=== PATIENT | male | born 1990 | race Hispanic/Latino ===

== ENCOUNTER 2022-10-31 18:31 | Emergency (ER) | payer OTHER, SELFPAY ==
--- OUTSIDE RECORDS SUMMARY | 2022-10-31 18:35 | XMS REPORT | Continuity of Care Document ---
:1990 Author Organization [facility] t Address [address] [place] [address] Care Team Providers Name Role Phone Asked, No Pcp Primary Care Physician Unavailable HALLE PARRA Attending Clinician Unavailable Problems This patient has no known problems. Allergies, Adverse Reactions, Alerts Allergy Allergy Status Severity Reaction(s) Onset Inactive Treating Comm ents Source Name Type Date Date Clinician No Known No Known Active Memori a Medicati Medicati l on on Zelalem Jacob Allerghonorio s s Social History Social Habit Start Date Stop Date Quantity Comments Source Gender identity [facility] Sexual orientation Method [facility] Alcohol intake 2016-11-19 2016-11-19 Current [facility] 00:00:00 00:00:00 non-drinker of Medical Ce nter alcohol (finding) Sex Assigned At [birth year] [facility] 00:00:00 00:00:00 [facility] Smoking Status Start Date Stop Date Source Tobacco smoking consumption [facility] unknown Social History 2018-05-27 00:41:51 [facility] Never smoked tobacco [facility] Medications Ordered Filled Start Stop Current Ordering Indication Dosage Frequency Signature Comments Components Source Medication Medication Date Date Medication? Clinician (SIG) Name Name 12 HR 2019-0 No 1 tab, PO, Memori a Dextrometho -31 Q12H, X 7 l rphan 01:06: day, # 14 [place] Hydrobromid 00 tab, 0 e 30 MG / Refill(s) Guaifenesin 600 MG Extended Release Tablet [Mucinex DM] Oseltamivir 0 No 75 mg, PO, Memoria 75 MG Oral 05-27 Q12H, X 5 l Capsule 01:06: day, # 10 Hellen nn [Tamiflu] 00 cap, 0 Refill(s) 12 HR 2019-0 No 1 tab, PO, Memori a Dextrometho 05-27 Q12H, X 7 l rphan 01:06: day, # 14 [place] Hydrobromid 00 tab, 0 e 30 MG / Refill(s) Guaifenesin 600 MG Extended Release Tablet [Mucinex DM] Oseltamivir No 75 mg, PO, Memoria 75 MG Oral 05-27 Q12H, X 5 l Capsule 01:06: day, # 10 Hellen nn [Tamiflu] 00 cap, 0 Refill(s) 12 HR 2018-0 No 1 tab, PO, Memori a Dextrometho 05-27 Q12H, X 7 l rphan 01:06: day, # 14 [place] Hydrobromid 00 tab, 0 e 30 MG / Refill(s) Guaifenesin 600 MG Extended Release Tablet [Mucinex DM] Oseltamivir 0 No 75 mg, PO, Memoria 75 MG Oral 05-27 Q12H, X 5 l Capsule 01:06: day, # 10 Hellen nn [Tamiflu] 00 cap, 0 Refill(s) Vital Signs Vital Name Observation Time Observation Value Comments Source Weight 2018-05-27 00:33:00 [facility] Height 2018-05-27 00:33:00 167.64 cm [facility] Respitory Rate 2018-05-27 00:33:00 Gretchen Mckenna Heart Rate 2018-05-27 00:33:00 [facility] [place] Systolic (mm Hg) 2018-05-27 00:33:00 Nick Masterson Diastolic (mm Hg) 2018-05-27 00:33:00 Mem elle Masterson BMI Calculated 2018-05-27 00:33:00 Gretchen Mckenna Procedures This patient has no known procedures. Encounters Start End Encounter Admission Attending Care Care Encounter Source Date/Time Date/Time Type Type Clinicians Facility Department ID 2020-04-23 2020-04-23 Outpatient [facility] 00:00:00 00:00:00 [id number] 2020-04-09 2020-04-09 Outpatient FBCOVID FBCOVID [id number] FBCOVID 00:00:00 00:00:00 [id number] 2019-02-03 Outpatient MHIE MHIE [id number] Memoria 10:00:00 10:00:00 02 erwin [place] 2019-02-03 2019-02-03 Outpatient MHIE MHIE [id number] Memoria 10:00:00 10:00:00 02 erwin [place] 2019-02-03 2019-02-03 Outpatient MHIE MHIE [id number] Memoria 10:00:00 10:00:00 02 erwin Masterson 2018-05-27 2018-05-27 Outpatient nullFlavo PSC After [id number] Memoria 00:40:00 05:59:59 r Hours Pod erwin Masterson 2018-05-27 2018-05-27 Outpatient nullFlavo PSC After [id number] Memoria 00:40:00 05:59:59 r Hours Pod erwin Masterson 2018-05-27 2018-05-27 Outpatient nullFlavo PSC After [id number] Memoria 00:40:00 05:59:59 r Hours Pod erwin Masterson 2018-05-26 2018-05-26 Outpatient MHMG MHMG [id number] 18:40:00 23:59:59 2018-05-26 2018-05-26 Outpatient MHMG MHMG [id number] 18:40:00 23:59:59 2018-05-26 2018-05-26 Outpatient MHMG MHMG [id number] 18:40:00 23:59:59 2018-05-26 2018-05-26 Outpatient MHMG MHMG [id number] 18:40:00 23:59:59 2018-05-26 2018-05-26 Outpatient MHIE MHIE [id number] Memoria 18:40:00 18:40:00 erwin Masterson 2018-05-26 2018-05-26 Outpatient MHIE MHIE [id number] Memoria 18:40:00 18:40:00 erwin Masterson Results Test Description Test Time Test Comments Results Result Comments Source RAPID DRUG SCREEN, URINE 2016-11-19 03:36:00 Test Item Value Reference Range Interpretation Comme nts BARBITURATE URINE (BEAKER) (test code = 725) Negative Negative BENZODIAZEPINE SCREEN URINE (BEAKER) (test code = 726) Negative Negative COCAINE (METAB.) SCREEN (BEAKER) (test code = 1164) Negative Ne gative METHADONE SCREEN (BEAKER) (test code = 1436) Negative Negative OPIATE SCREEN URINE (BEAKER) (test code = 734) Negative Negativ e CANNABINOID SCREEN URINE (BEAKER) (test code = 727) Negative Ne gative AMPH/METHAMPH SCREEN (BEAKER) (test code = 1438) Negative Negat iveth PHENCYCLIDINE SCREEN URINE (BEAKER) (test code = 608) Negative Negative DRUG CUTOFF CONC.Cocaine 300 ng/mL Cannabinoid 50 ng/mLBenzodiazepine 200 ng/mLBarbiturate 200 ng/mLPhencyclidine 25 ng/mLOpiate 300 ng/mLMethadone 300 ng/mLAmphetamine/ 1000 ng/mL MethamphetamineThisassay provides an unconfirmed qualitative test result for the clinical management of patients in emergency situations. Chain of custody not maintained. Some [id number] medications, as well as adulterants, may cause inaccurate results. Clinical correlation should be applied. A more comprehensive drug screen or confirmation of a detected drug may be performed upon request.[id number] 03:35:00 Test Item Value Reference Range Interpretation Comments LIPASE (BEAKER) (test code = 749) 17 U/L 6-51 COMPREHENSIVE METABOLIC [id number] 03:34:00 Test Item Value Reference Range Interpretation Comments TOTAL PROTEIN 7.5 gm/dL 6.0-8.5 (BEAKER) (test code = 770) ALBUMIN (BEAKER) 4.5 g/dL 3.5-5.0 (test code = 1145) ALKALINE PHOSPHATASE 66 U/L 30-115 (BEAKER) (test code = 346) BILIRUBIN TOTAL 0.7 mg/dL 0.1-1.2 (BEAKER) (test code = 377) SODIUM (BEAKER) (test 138 meq/L 135-148 code = 381) POTASSIUM (BEAKER) 3.8 meq/L 3.6-5.5 (test code = 379) CHLORIDE (BEAKER) 103 meq/L 98-106 (test code = 382) CO2 (BEAKER) (test 25 meq/L 20-29 code = 355) BLOOD UREA NITROGEN 19 mg/dL 10-26 (BEAKER) (test code = 354) CREATININE (BEAKER) 1.30 mg/dL 0.50-1.20 H (test code = 358) GLUCOSE RANDOM 113 mg/dL 70-110 H (BEAKER) (test code = 652) CALCIUM (BEAKER) 9.4 mg/dL 8.5-10.5 (test code = 697) AST (SGOT) (BEAKER) 39 U/L 5-40 (test code = 353) ALT (SGPT) (BEAKER) 51 U/L 5-50 H (test code = 347) EGFR (BEAKER) (test 66 mL/min/1.73 ESTIMA VERA GFR IS code = 1092) sq m NOT ACCURATE CREATININE CLEARANCE IN PREDICTING GLOMERULAR FILTRATION RATE . ESTIMATED GFR I S NOT APPLICABLE FOR DIALYSIS PATIEN TS. URINALYSIS W/ [id number] 03:28:00 Test Item Value Reference Range Interpretation Comments COLOR (BEAKER) (test code = Yellow 470) CLARITY (BEAKER) (test code = Clear 469) SPECIFIC GRAVITY UA (BEAKER) 1.010 1.001-1.035 (test code = 468) PH UA (BEAKER) (test code = 7.0 5.0-8.0 467) PROTEIN UA (BEAKER) (test code Negative Negative = 464) GLUCOSE UA (BEAKER) (test code Negative Negative = 365) KETONES UA (BEAKER) (test code Negative Negative = 371) BILIRUBIN UA (BEAKER) (test Negative Negative code = 462) BLOOD UA (BEAKER) (test code = Negative Negative 461) NITRITE UA (BEAKER) (test code Negative Negative = 465) LEUKOCYTE ESTERASE UA (BEAKER) Negative Negative (test code = 466) UROBILINOGEN UA (BEAKER) (test 0.2 mg/dL 0.2-1.0 code = 463) BACTERIA (BEAKER) (test code = Occasional 517) RBC UA-MANUAL (BEAKER) (test None Seen /HPF code = 1659) WBC UA-MANUAL (BEAKER) (test <5 /HPF code = 1661) SQUAMOUS EPITHELIAL MANUAL <5 /HPF (BEAKER) (test code = 1663) SOURCE(BEAKER) (test code = 2795) [id number] 03:26:00 Test Item Value Reference Range Interpretation Comments AMYLASE (BEAKER) (test code = 349) 81 U/L 30-110 CBC W/PLT COUNT & AUTO [id number] 03:13:00 Test Item Value Reference Range Interpretation Comments WHITE BLOOD CELL COUNT (BEAKER) 7.1 K/ L 4.0-10.0 (test code = 775) RED BLOOD CELL COUNT (BEAKER) 5.33 M/ L 4.20-5.80 (test code = 761) HEMOGLOBIN (BEAKER) (test code = 15.3 GM/DL 13.0-16.8 410) HEMATOCRIT (BEAKER) (test code = 46.2 % 40.0-50.0 411) MEAN CORPUSCULAR VOLUME (BEAKER) 86.7 fL 82.0-98.0 (test code = 753) MEAN CORPUSCULAR HEMOGLOBIN 28.7 pg 27.0-33.0 (BEAKER) (test code = 751) MEAN CORPUSCULAR HEMOGLOBIN CONC 33.1 GM/DL 32.0-36.0 (BEAKER) (test code = 752) RED CELL DISTRIBUTION WIDTH 12.9 % 10.3-14.2 (BEAKER) (test code = 412) PLATELET COUNT (BEAKER) (test 176 K/CU MM 150-430 code = 756) MEAN PLATELET VOLUME (BEAKER) 9.9 fL 6.5-10.5 (test code = 754) NUCLEATED RED BLOOD CELLS 0 /100 WBC 0-0 (BEAKER) (test code = 413) NEUTROPHILS RELATIVE PERCENT 69 % (BEAKER) (test code = 429) LYMPHOCYTES RELATIVE PERCENT 22 % (BEAKER) (test code = 430) MONOCYTES RELATIVE PERCENT 7 % (BEAKER) (test code = 431) EOSINOPHILS RELATIVE PERCENT 1 % (BEAKER) (test code = 432) BASOPHILS RELATIVE PERCENT 0 % (BEAKER) (test code = 437) NEUTROPHILS ABSOLUTE COUNT 4.90 K/ L 1.80-8.00 (BEAKER) (test code = 670) LYMPHOCYTES ABSOLUTE COUNT 1.60 K/ L 1.48-4.50 (BEAKER) (test code = 414) MONOCYTES ABSOLUTE COUNT (BEAKER) 0.50 K/ L 0.00-1.30 (test code = 415) EOSINOPHILS ABSOLUTE COUNT 0.10 K/ L 0.00-0.50 (BEAKER) (test code = 416) BASOPHILS ABSOLUTE COUNT (BEAKER) 0.00 K/ L 0.00-0.20 (test code = 417)
[2022-10-31] MEDS ORDERED: KETOROLAC 30 MG/ML INJ ONE (19:59)
[2022-10-31] MEDS ORDERED: dexAMETHasone 10 MG/ML VIAL ONE (19:59)
[2022-10-31] MEDS ORDERED: MORPHINE 4 MG/ML SYR ONE (19:59)
--- NOTE | 2022-10-31 20:14 | RAD REPORT ---
EXAM DESCRIPTION: CT - [id number] - 10/31/2022 7:43 pm CLINICAL HISTORY: paresthesias left arm/leg, headache COMPARISON: No comparisons TECHNIQUE: Axial thin cut noncontrast CT images of the head were obtained. Axial thin cut noncontrast CT images of the cervical spine were obtained. Multiplanar reformatted images were generated and reviewed. All CT scans are performed using dose optimization technique as appropriate and may include automated exposure control or mA/KV adjustment according to patient size. FINDINGS: CT HEAD WITHOUT CONTRAST: No acute hemorrhage, hydrocephalus or extra-axial collection is identified.No areas of brain edema or midline shift. Mucous retention cyst in the left maxillary sinus. Mastoid air cells are clear. .The calvarium is int act. CT CERVICAL SPINE WITHOUT CONTRAST: No fracture or subluxation.No prevertebral soft tissues swelling is identified. Lucent lesion involv ing the left T3 pedicle and base of the spinous process, with thickened trabecula, most suggestive of a hemangioma. IMPRESSION: No acute traumatic intracranial or cervical spine findings. Incidental findings as above.
--- NOTE | 2022-10-31 20:24 | ER ---
Nurse's Notes [facility] Name: Cristhian Arciniega Age: 32 yrs Sex: Male : 1990 Arrival Date: 10/31/2022 Time: 18:31 Bed 9 Private MD: Diagnosis: Headache;Paresthesia of skin Presentation: 10/31 19:23 Chief complaint: Patient states: I was at work and I started having tingling and vc1 numbness to my left arm and leg, I also had a bad headache. Coronavirus screen: Vaccine status: Client denies travel out of the [place] in the last 14 days. At this time, the client does not indicate any symptoms associated with coronavirus-19. Ebola Screen: Patient negative for fever greater than or equal to 101.5 degrees Fahrenheit, and additional compatible Ebola Virus Disease symptoms Patient denies exposure to infectious person. Patient denies travel to an Ebola-affected area in the 21 days before illness onset. No symptoms or risks identified at this time. Initial Sepsis Screen: Does the patient meet any 2 criteria? No. Patient's initial sepsis screen is negative. Does the patient have a suspected source of infection? No. Patient's initial sepsis screen is negative. Risk Assessment: Do you want to hurt yourself or someone else? Patient reports no desire to harm self or others. Onset of symptoms was October 31, 2022. 19:23 Method Of Arrival: Ambulatory vc1 19:23 Acuity: [place] 3 vc1 Triage Assessment: 19:26 General: Appears in no apparent distress. uncomfortable, Behavior is calm, cooperative, vc1 appropriate for age. Pain: Denies pain. EENT: No deficits noted. No signs and/or symptoms were reported regarding the EENT system. Neuro: Level of Consciousness is awake, alert, obeys commands, Oriented to person, place, time, situation, Appropriate for age. Neuro: [place] Agitation-Sedation Scale (RASS): 0 - Alert and Calm. Neuro: Reports numbness in left arm and left leg. Cardiovascular: No deficits noted. Respiratory: Airway is patent Respiratory effort is even, unlabored, Respiratory pattern is regular, symmetrical. GI: No deficits noted. No signs and/or symptoms were reported involving the gastrointestinal system. : No deficits noted. No signs and/or symptoms were reported regarding the genitourinary system. Derm: No deficits noted. No signs and/or symptoms reported regarding the dermatologic system. Musculoskeletal: Reports weakness in left arm and left leg numbness in left arm and left leg. Historical: - Allergies: 19:26 No Known Allergies; vc1 - Home Meds: 19:26 None [Active]; vc1 - PMHx: 19:26 None; vc1 - PSHx: 19:26 None; vc1 - Immunization history:: Client reports having NOT received the Covid vaccine. - Social history:: Smoking status: Patient reports the use of cigarette tobacco products, denies chronic smoking, but will smoke occasionally. - Family history:: not pertinent. - Hospitalizations: : No recent hospitalization is reported. Screenin:55 [facility] ED Fall Risk Assessment (Adult) History of falling in the last 3 months, cm10 including since admission No falls in past 3 months (0 pts) Confusion or Disorientation No (0 pts) Intoxicated or Sedated No (0 pts) Impaired Gait No (0 pts) Mobility Assist Device Used No (0 pt) Altered Elimination No (0 pt) Score/Fall Risk Level 0 - 2 = Low Risk Oriented to surroundings, Maintained a safe environment, Hourly rounding (assess needs \T\ fall precautionary measures) done. Abuse screen: Denies threats or abuse. Denies injuries from another. Nutritional screening: No deficits noted. Tuberculosis screening: No symptoms or risk factors identified. Assessment: 20:54 General: Appears in no apparent distress. comfortable, Behavior is calm, cooperative. cm10 Neuro: No deficits noted. Level of Consciousness is awake, alert, Oriented to person, place, time, situation, Reports headache. Respiratory: No deficits noted. Airway is patent Respiratory effort is even, unlabored, Respiratory pattern is regular, symmetrical. Vital Signs: 19:23 BP 141 / 95; Pulse 86; Resp 17; Temp 97.8; Pulse Ox 96% ; Weight 90.72 kg; Height 5 ft. vc1 6 in. ; Pain 0/10; 20:54 BP 147 / 97; Pulse 88; Resp 16; Pulse Ox 100% on R/A; cm10 19:23 Body Mass Index 32.28 (90.72 kg, 167.64 cm) vc1 19:23 Pain Scale: Adult vc1 Pj Coma Score: 20:21 Eye Response: spontaneous(4). Motor Response: obeys commands(6). Verbal Response: rn oriented(5). Total: 15. ED Course: 18:37 Patient arrived in ED. am2 18:56 Vidal Gleason MD is Attending Physician. rn 19:26 Triage completed. vc1 19:26 Arm band placed on right wrist. vc1 19:42 Adri Oseguera, RN is Primary Nurse. cm10 19:45 CT Head C Spine In Process Unspecified. EDMS 20:55 Patient has correct armband on for positive identification. Bed in low position. Call cm10 light in reach. Pulse ox on. NIBP on. 20:55 No provider procedures requiring assistance completed. Patient did not have IV access cm10 during this emergency room visit. Administered Medications: 19:05 CANCELLED (Duplicate Order): morphine IVP or IV 4 mg IVP once over 4 mins rn 19:05 CANCELLED (Duplicate Order): Decadron - Dexamethasone IVP 10 mg IVP once rn 19:05 CANCELLED (Duplicate Order): Ketorolac IVP 15 mg IVP once yarn inspector: 20:55 VIS not applicable for this client. cm10 Outcome: 20:24 Discharge ordered by . rn 20:55 Discharged to home ambulatory. cm10 20:55 Condition: good 20:55 Discharge instructions given to patient, Instructed on discharge instructions, follow up and referral plans. Demonstrated understanding of instructions, follow-up care. 20:56 Patient left the ED. cm10 Signatures: Dispatcher [employer] EDCT Vidal Gleason MD MD rn Moreno, Amanda am2 Darlyn Alvarado RN RN 1 Adri Oseguera RN RN cm10
--- NOTE | 2022-10-31 20:24 | EDPHYS ---
Physician Documentation [facility] Name: Cristhian Arciniega Age: 32 yrs Sex: Male : 1990 Arrival Date: 10/31/2022 Time: 18:31 Bed 9 Private MD: ED Physician Vidal Gleason HPI: 10/31 20:03 This 32 yrs old Male presents to ER via Ambulatory with complaints of rn headache, Numbness Of Arm, Numbness - leg. 20:03 The patient complains of pain to the forehead. The patient describes the headache as rn aching. Onset: The symptoms/episode began/occurred today. Severity of symptoms: At its worst the pain was mild, in the emergency department the pain has improved. Headache History: The patient has had previous headaches and this one is similar to previous episodes. The symptoms are alleviated by nothing. the symptoms are aggravated by nothing. The patient has not experienced similar symptoms in the past. The patient has not recently seen a physician. Pt reports at work, began to have a headache, similar to previous normal headaches, not worst headache of his life, headache has since improved on its own. What concerned him was numbness and tingling to left forearm and left leg below the knee. No weakness. Numbness and tingling have also improved. Now reports only symptoms currently is intermittent spasm of left 1st webspace. . Historical: - Allergies: 19:26 No Known Allergies; vc1 - Home Meds: 19:26 None [Active]; vc1 - PMHx: 19:26 None; vc1 - PSHx: 19:26 None; vc1 - Immunization history:: Client reports having NOT received the Covid vaccine. - Social history:: Smoking status: Patient reports the use of cigarette tobacco products, denies chronic smoking, but will smoke occasionally. - Family history:: not pertinent. - Hospitalizations: : No recent hospitalization is reported. ROS: 20:03 Constitutional: Negative for fever, chills, and weight loss, Neck: Negative for injury, rn pain, and swelling, Cardiovascular: Negative for chest pain, palpitations, and edema, Respiratory: Negative for shortness of breath, cough, wheezing, and pleuritic chest pain, Abdomen/GI: Negative for abdominal pain, nausea, vomiting, diarrhea, and constipation, Back: Negative for injury and pain, MS/Extremity: Negative for injury and deformity, Skin: Negative for injury, rash, and discoloration, Neuro: Negative for weakness, and seizure Exam: 20:03 Constitutional: This is a well developed, well nourished patient who is awake, alert, rn and in no acute distress. Head/Face: Normocephalic, atraumatic. Eyes: Pupils equal round and reactive to light, extra-ocular motions intact. Lids and lashes normal. Conjunctiva and sclera are non-icteric and not injected. Cornea within normal limits. Periorbital areas with no swelling, redness, or edema. Neck: No Meningismus. Cardiovascular: Regular rate and rhythm. No pulse deficits. Respiratory: No increased work of breathing, no retractions or nasal flaring. Skin: Warm, dry with normal turgor. Normal color with no rashes, no lesions, and no evidence of cellulitis. MS/ Extremity: Pulses equal, no cyanosis. Neurovascular intact. Full, normal range of motion. Equal circumference. Neuro: Awake and alert, GCS 15, oriented to person, place, time, and situation. Cranial nerves II-XII grossly intact. Motor strength 5/5 in all extremities. Sensory grossly intact. Cerebellar exam normal. Normal gait. Vital Signs: 19:23 BP 141 / 95; Pulse 86; Resp 17; Temp 97.8; Pulse Ox 96% ; Weight 90.72 kg; Height 5 ft. vc1 6 in. ; Pain 0/10; 20:54 BP 147 / 97; Pulse 88; Resp 16; Pulse Ox 100% on R/A; cm10 19:23 Body Mass Index 32.28 (90.72 kg, 167.64 cm) vc1 19:23 Pain Scale: Adult vc1 [place] Coma Score: 20:21 Eye Response: spontaneous(4). Motor Response: obeys commands(6). Verbal Response: rn oriented(5). Total: 15. MDM: 18:56 Patient medically screened. rn 20:21 Differential diagnosis: hypertensive headache, intracerebral hemorrhage, migraine, rn tension headache, vasomotor headache, complicated migraine. Data reviewed: vital signs, nurses notes, radiologic studies, CT scan, and as a result, I will discharge patient. Counseling: I had a detailed discussion with the patient and/or guardian regarding: the historical points, exam findings, and any diagnostic results supporting the discharge/admit diagnosis, radiology results, the need for outpatient follow up, to return to the emergency department if symptoms worsen or persist or if there are any questions or concerns that arise at home. Response to treatment: the patient's symptoms have resolved after treatment, the patient's condition has returned to base line, the patient is now symptom free, and as a result, I will discharge patient. Special discussion: I discussed with the patient/guardian in detail that at this point there is no indication for admission to the hospital. It is understood, however, that if the symptoms persist or worsen the patient needs to return immediately for re-evaluation. Based on the history and exam findings, there is no indication for further emergent testing or inpatient evaluation. I discussed with the patient/guardian the need to see the neurologist for further evaluation of the symptoms. ED course: CT head/cspine without acute findings. Pt back to baseline. Young healthy patient with normal neuro exam. Possible complicated migraine given tingling followed headache onset, and now headache and tingling have resolved. Recommend neuro f/u and return precautions given and understood. . 10/31 19:25 Order name: CT Head C Spine; Complete Time: 20:15 rn Administered Medications: 19:05 CANCELLED (Duplicate Order): morphine IVP or IV 4 mg IVP once over 4 mins rn 19:05 CANCELLED (Duplicate Order): Decadron - Dexamethasone IVP 10 mg IVP once rn 19:05 CANCELLED (Duplicate Order): Ketorolac IVP 15 mg IVP once rn Disposition Summary: 10/31/22 20:24 Discharge Ordered Location: Home rn Problem: new rn Symptoms: have improved rn Condition: Stable rn Diagnosis - Headache rn - Paresthesia of skin rn Followup: rn - With: Private Physician - When: As needed - Reason: Recheck today's complaints, Re-evaluation by your physician Discharge Instructions: - Discharge Summary Sheet rn - General Headache Without Cause rn - Paresthesia rn Forms: - Medication Reconciliation Form rn - Thank You Letter rn - Antibiotic behavioral health rn - Prescription Opioid Use rn - [email or web address] rn Signatures: Dispatcher [employer] EDVidal Correa MD MD rn Calcote, Vanessa, RN RN vc1 Corrections: (The following items were deleted from the chart) 19:05 19:04 IV Saline Lock ordered. rn nelly : 19:04 morphine IVP or IV 4 mg IVP once over 4 mins ordered. rn nelly 19:04 Decadron - Dexamethasone IVP 10 mg IVP once ordered. rn nelly : 19:04 Ketorolac IVP 15 mg IVP once ordered. nelly villegas : 19:05 Thoracic Spine WO Cont+CT.RAD.BRZ ordered. EDMS EDMS 19: Spine Lumbar Wo Con+CT.RAD.BRZ ordered. EDMS EDMS
[2022-10-31 21:01] VITALS: TEMP 97.8
[2022-10-31 21:02] VITALS: BP 147/97; O2SAT 100
== END 2022-10-31 20:56 | disposition home or self-care (01) ==
LOC: ER 18:31 → EDSEX 18:31 → ER 20:56
DX: R51.9 Headache, unspecified (principal); R20.2 Paresthesia of skin; F17.210 Nicotine dependence, cigarettes, uncomplicated
CPT/HCPCS: 70450; 72125; 99283; J1100